=== PATIENT | female | born 1965 | race Two or more races ===

== ENCOUNTER 2023-01-10 20:56 | Inpatient (IN) | payer OTHER ==
[~2023-01-10] VITALS: Ht 167.6 cm; Wt 74.8 kg
[2023-01-10] MEDS ORDERED: TOUJEO MAX300 UNIT/1 (21:03)
[2023-01-10] MEDS ORDERED: HUMALOG100 UNIT/2 (21:03)
[2023-01-10] MEDS ORDERED: METFORMIN HCL1000 M2 PO (21:04)
[2023-01-17] MEDS ORDERED: Lantus 1000 UNITS/10 SUBCUTANEO ×2 (11:40)
[2023-01-17] MEDS ORDERED: IPRATROPIU0.2 MG/1 M IH (11:40)
[2023-01-17] MEDS ORDERED: BUDESONIDE0.5 MG/2 M IH (11:40)
[2023-01-17] MEDS ORDERED: XOPENEX CO1.25 MG/0. IH (11:40)
[2023-01-17] MEDS ORDERED: HUMALOG100 UNIT/1 SUBCUTANEO ×2 (11:40)
[2023-01-17] MEDS ORDERED: RAYOS5 MG PO (11:40)
[2023-01-17] MEDS ORDERED: PANTOPRAZOLE SO40 MG PO (11:40)
== END 2023-01-17 13:43 | disposition home or self-care (01) | DRG 190 ==
LOC: ER 20:56 → MEDJ 23:52
PROVIDERS: ADMIT Internal Medicine; ATTEND Internal Medicine
PROC: BB24Y0Z Computerized Tomography (CT Scan) of Bilateral Lungs using Other Contrast, Unenhanced and Enhanced (ICD-10-PCS; 2023-01-10)
PROC: 3E0F7GC Introduction of Other Therapeutic Substance into Respiratory Tract, Via Natural or Artificial Opening (ICD-10-PCS; 2023-01-11)
PROC: B246ZZZ Ultrasonography of Right and Left Heart (ICD-10-PCS; principal; 2023-01-13)
DX: J44.1 Chronic obstructive pulmonary disease with (acute) exacerbation (principal); J18.9 Pneumonia, unspecified organism; J11.1 Influenza due to unidentified influenza virus with other respiratory manifestations; E11.9 Type 2 diabetes mellitus without complications; Z79.4 Long term (current) use of insulin; F17.200 Nicotine dependence, unspecified, uncomplicated